=== PATIENT | female | born 1935 | race Caucasian/White ===

== ENCOUNTER 2017-05-18 18:47 | Emergency (ER) | payer MEDICARE ==
[~2017-05-18] VITALS: Ht 167.6 cm; Wt 62.4 kg
[2017-05-18 18:52] VITALS: BP 165/75
[2017-05-18] MEDS ORDERED: LIDOCAINE 1%, 20ML INFIL ONE (19:00)
[2017-05-18] MEDS ORDERED: LIDOCAINE 1%, 20ML ONE (19:10)
[2017-05-18] MEDS ORDERED: BUPIVACAINE 0.25% ONE (19:13)
[2017-05-18] MEDS ORDERED: DIPH,PERTUSS(ACELL),TET VAC/PF 0.5 ML IM-VACC ONE ×2 (19:30→19:51)
[2017-05-18] MEDS ORDERED: BUPIVACAINE 0.25% INFIL ONE (19:30)
[2017-05-18] MEDS ORDERED: BACITRACIN ZINC OINT 500U/GM, 0.9 GM ONE (20:42)
== END 2017-05-18 20:44 | disposition home or self-care (01) ==
LOC: ED 20:38
DX: S61.212A Laceration without foreign body of right middle finger without damage to nail, initial encounter (principal); I10 Essential (primary) hypertension; E78.00 Pure hypercholesterolemia, unspecified; W26.0XXA Contact with knife, initial encounter; Y93.89 Activity, other specified; Y92.098 Other place in other non-institutional residence as the place of occurrence of the external cause; Y99.8 Other external cause status
CPT/HCPCS: 12001; 90471; 90715

== ENCOUNTER → 2019-03-11 | Outpatient (CLI) | payer MEDICARE | END | disposition home or self-care (01) | LOC: CFH 09:47 | PROVIDERS: ATTEND Internal Medicine Cardiovascular Disease | DX: I08.8 Other rheumatic multiple valve diseases (principal) | CPT/HCPCS: 93306 ==

== ENCOUNTER 2019-10-25 12:04 | Outpatient (CLI) | payer MEDICARE | END 2019-10-25 23:59 | disposition home or self-care (01) | LOC: CFH 12:04 | PROVIDERS: ATTEND Physician Assistant Medical | DX: J43.9 Emphysema, unspecified (principal); J90 Pleural effusion, not elsewhere classified; I11.9 Hypertensive heart disease without heart failure; I50.9 Heart failure, unspecified; I27.20 Pulmonary hypertension, unspecified; I08.1 Rheumatic disorders of both mitral and tricuspid valves; F32.9 Major depressive disorder, single episode, unspecified | CPT/HCPCS: 71046 ==

== ENCOUNTER → 2019-12-17 | Outpatient (CLI) | payer MEDICARE ==
[2019-12-17 13:10] LABS: BASOPHILS # (AUTO) 0.03 x10^3/uL (0-0.1); BASOPHILS % (AUTO) 0 % (0-1); EOSINOPHILS # (AUTO) 0.19 x10^3/uL (0-0.4); EOSINOPHILS % (AUTO) 3 % (1-7); LYMPHOCYTES # (AUTO) 1.57 x10^3/uL (1-3.4); LYMPHOCYTES % (AUTO) 21 % (22-44); MD NO; MEAN CORPUSCULAR HGB CONC 32.9 g/dL (32.4-35.8); MEAN CORPUSCULAR VOLUME 91.1 fL (80-100); MEAN PLATELET VOLUME 7.5 fL (7.4-10.4); MONOCYTES # (AUTO) 0.51 x10^3/uL (0.2-0.8); MONOCYTES % (AUTO) 7 % (2-9); NEUTROPHILS # (AUTO) 5.33 x10^3/uL (1.8-6.8); NEUTROPHILS % (AUTO) 70 % (42-75); PLATELET COUNT 233 x10^3/uL (130-400); RED BLOOD COUNT 4.88 x10^6/uL (3.82-5.3); RED CELL DISTRIBUTION WIDTH 13.6 % (9.6-15.2)
[2019-12-17 13:52] LABS: ALBUMIN 3.7 g/dL (3.4-5.0); ANION GAP 9 mmol/L (5-15); CALCIUM 9.1 mg/dL (8.5-10.1); CHLORIDE 94 mmol/L (98-107)
[2019-12-17 13:57] LABS: ALANINE AMINOTRANSFERASE 71 U/L (12-78); ALKALINE PHOSPHATASE 165 U/L (45-117); BILIRUBIN,TOTAL 0.9 mg/dL (0.2-1.0); CREATININE 0.75 mg/dL (0.55-1.02)
== END | disposition home or self-care (01) ==
LOC: CFH 09:35
PROVIDERS: ATTEND Nurse Practitioner
DX: J84.10 Pulmonary fibrosis, unspecified (principal); J98.4 Other disorders of lung; R91.1 Solitary pulmonary nodule; I34.0 Nonrheumatic mitral (valve) insufficiency; R18.8 Other ascites
CPT/HCPCS: 36415; 71250; 80053; 83880; 85025

== ENCOUNTER → 2019-12-19 | Outpatient (CLI) | payer MEDICARE | END | disposition home or self-care (01) | LOC: CFH 06:37 | PROVIDERS: ATTEND Internal Medicine Cardiovascular Disease | DX: Z01.810 Encounter for preprocedural cardiovascular examination (principal); I08.8 Other rheumatic multiple valve diseases; I47.1 Supraventricular tachycardia | CPT/HCPCS: 76700; 93306 ==

== ENCOUNTER → 2020-01-22 | Outpatient (CLI) | payer MEDICARE ==
[2020-01-22 13:00] LABS: ALANINE AMINOTRANSFERASE 45 U/L (12-78); ALBUMIN 4.2 g/dL (3.4-5.0); ALKALINE PHOSPHATASE 130 U/L (45-117); ANION GAP 5 mmol/L (5-15); BILIRUBIN,TOTAL 1.3 mg/dL (0.2-1.0); CALCIUM 9.4 mg/dL (8.5-10.1); CHLORIDE 91 mmol/L (98-107); CREATININE 0.84 mg/dL (0.55-1.02); TOTAL PROTEIN 6.8 g/dL (6.4-8.2)
[2020-01-22 13:06] LABS: BILIRUBIN, DIRECT 0.4 mg/dL (0.1-0.2); BILIRUBIN,INDIRECT 0.9 mg/dL (0.0-2.0)
== END | disposition home or self-care (01) ==
LOC: CFH 09:07
PROVIDERS: ATTEND Internal Medicine Cardiovascular Disease
DX: R06.02 Shortness of breath (principal); R60.9 Edema, unspecified
CPT/HCPCS: 36415; 80048; 80076; 83880

== ENCOUNTER → 2020-02-10 | Outpatient (CLI) | payer MEDICARE ==
[2020-02-10 13:23] LABS: CHLORIDE 102 mmol/L (98-107)
[2020-02-10 13:39] LABS: ALANINE AMINOTRANSFERASE 71 U/L (12-78); ALBUMIN 4.1 g/dL (3.4-5.0); ALKALINE PHOSPHATASE 147 U/L (45-117); ANION GAP 5 mmol/L (5-15); CALCIUM 9.2 mg/dL (8.5-10.1); CREATININE 0.88 mg/dL (0.55-1.02); TOTAL PROTEIN 6.6 g/dL (6.4-8.2)
== END | disposition home or self-care (01) ==
LOC: CFH 09:16
PROVIDERS: ATTEND Family Medicine
DX: I10 Essential (primary) hypertension (principal); I08.1 Rheumatic disorders of both mitral and tricuspid valves
CPT/HCPCS: 36415; 80053; 83880

== ENCOUNTER → 2020-02-13 | Outpatient (CLI) | payer MEDICARE | END | disposition home or self-care (01) | LOC: CFH 07:42 | PROVIDERS: ATTEND Internal Medicine Cardiovascular Disease | DX: I10 Essential (primary) hypertension (principal); R06.02 Shortness of breath | CPT/HCPCS: 78452; 93017; A9502 ==

== ENCOUNTER 2020-04-09 11:06 | Day surgery (SDC) | payer MEDICARE ==
[~2020-04-09] VITALS: Ht 165.1 cm; Wt 59.1 kg
[2020-04-09] MEDS ORDERED: PLEASE ENTER HEIGHT AND WEIGHT MC SCH (11:30)
[2020-04-09 11:37] VITALS: BP 111/67
[2020-04-09] MEDS ORDERED: FURO20TA3 PO (11:44)
[2020-04-09] MEDS ORDERED: CHOL10003 PO (11:44)
[2020-04-09] MEDS ORDERED: LABE200T6 PO (11:44)
[2020-04-09] MEDS ORDERED: OMEG1CAP23 PO (11:44)
[2020-04-09] MEDS ORDERED: APIX5TAB PO (11:44)
[2020-04-09] MEDS ORDERED: LOSA100T14 PO (11:44)
[2020-04-09] MEDS ORDERED: MAGN400T36 PO (11:44)
[2020-04-09] MEDS ORDERED: MIRT15TA PO (11:44)
[2020-04-09] MEDS ORDERED: POTA10TA6 PO (11:44)
[2020-04-09] MEDS ORDERED: SPIR25TA PO (11:44)
[2020-04-09 12:04] LABS: ANION GAP 5 mmol/L (5-15); CALCIUM 9.8 mg/dL (8.5-10.1); CHLORIDE 104 mmol/L (98-107)
[2020-04-09] MEDS ORDERED: PROPOFOL 10 MG/ML, 20ML ONE (13:44)
[2020-04-09] MEDS ORDERED: SODIUM CHLORIDE FLUSH 10ML SYR IVF SCH (21:00)
== END 2020-04-09 15:09 | disposition home or self-care (01) ==
LOC: CACL 11:06
PROVIDERS: ATTEND Internal Medicine Cardiovascular Disease
DX: I48.91 Unspecified atrial fibrillation (principal); I10 Essential (primary) hypertension; I08.1 Rheumatic disorders of both mitral and tricuspid valves; F32.9 Major depressive disorder, single episode, unspecified; J44.9 Chronic obstructive pulmonary disease, unspecified; E87.1 Hypo-osmolality and hyponatremia; Z79.01 Long term (current) use of anticoagulants; Z79.899 Other long term (current) drug therapy; Z98.890 Other specified postprocedural states
CPT/HCPCS: 36415; 80048; 92960; 93005; J2704

== ENCOUNTER 2020-10-31 01:10 | Emergency (ER) | payer MEDICARE ==
[~2020-10-31] VITALS: Ht 165.1 cm; Wt 60.0 kg
[~2020-10-31 01:10] MED LIST: APIX5TAB PO; CHOL10003 PO; FURO20TA3 PO; LABE200T6 PO; LOSA100T14 PO; MAGN400T36 PO; MIRT-37 PO; OMEG1CAP23 PO; POTA10TA6 PO; SPIR25TA PO
[2020-10-31] MEDS ORDERED: PHENYLEPHRINE NASAL 1%, 15ML SPRAY ONE (01:36)
[2020-10-31] MEDS ORDERED: NEOSPORIN OINT. PKT 1 PACKET ONE (01:50)
[2020-10-31] MEDS ORDERED: PHENYLEPHRINE NASAL 0.5%, 15ML SPRAY NAS ONE (02:00)
[2020-10-31 02:37] VITALS: BP 183/84
--- NOTE | 2020-10-31 02:39 | NUR ---
break rn: Patient given discharge instructions and they have confirmed that they understand the instructions. Patient ambulatory with steady gait. nad, denies additional questions or needs at this time. no personal belongings left in room at time of dc.
== END 2020-10-31 02:40 | disposition home or self-care (01) ==
LOC: ED 02:34
DX: R04.0 Epistaxis (principal); I48.91 Unspecified atrial fibrillation; E78.00 Pure hypercholesterolemia, unspecified; I10 Essential (primary) hypertension
CPT/HCPCS: 30901; 99284

== ENCOUNTER 2020-11-02 12:34 | Emergency (ER) | payer MEDICARE ==
[~2020-11-02] VITALS: Ht 165.1 cm; Wt 60.4 kg
--- NOTE | 2020-11-02 15:08 | NUR ---
ERP, Dmitri, PA to bedside to remove left nostril packing.
[2020-11-02 15:09] VITALS: BP 125/60
[2020-11-02] MEDS ORDERED: SILVER NITRATE STICK TP ONE (15:12)
== END 2020-11-02 15:20 | disposition home or self-care (01) ==
LOC: ED 13:48
DX: R04.0 Epistaxis (principal); I10 Essential (primary) hypertension; I48.91 Unspecified atrial fibrillation; E78.00 Pure hypercholesterolemia, unspecified
CPT/HCPCS: 30901; 99284

== ENCOUNTER 2020-11-13 08:25 | Emergency (ER) | payer MEDICARE ==
[~2020-11-13] VITALS: Ht 165.1 cm; Wt 59.5 kg
[2020-11-13 08:27] VITALS: BP 174/75
--- NOTE | 2020-11-13 08:41 | NUR ---
PATIENT WALKED BACK FROM TRIAGE WITH CHIEF C/O OF EPISTAXIS. PATIENT STATES NOSE STARTED BLEEDING AROUND 0700 THIS MORNING AND HAS NOT STOPPED. PATIENT REPORTS BEING HERE A WEEK AGO FOR THE SAME ISSUE AND HAD HER NOSE PACKED. PATIENT REPORTS TAKING ELIQUIS. BLEEDING CONTROLLED AT THIS TIME, ETELVINAN, ACCOMPANIED BY SON, CALL LIGHT WITHIN REACH.
[2020-11-13] MEDS ORDERED: COCAINE TOPICAL SOLN 4%, 4ML ONE (09:16)
--- NOTE | 2020-11-13 09:31 | NUR ---
cocaine topical applied by resident. no bleeding. as
[2020-11-13] MEDS ORDERED: COCAINE TOPICAL SOLN 4%, 4ML TP ONE (10:30)
--- NOTE | 2020-11-13 10:56 | NUR ---
Patient given discharge instructions and they have confirmed that they understand the instructions. Patient stable and ambulatory with steady gait from ED with significant other to private vehicle.
== END 2020-11-13 10:57 | disposition home or self-care (01) ==
LOC: ED 08:47
DX: R04.0 Epistaxis (principal); R09.81 Nasal congestion; I10 Essential (primary) hypertension; I48.91 Unspecified atrial fibrillation
CPT/HCPCS: 99282

== ENCOUNTER → 2021-02-23 | Outpatient (CLI) | payer MEDICARE | END | disposition home or self-care (01) | LOC: CVU 09:20 | PROVIDERS: ATTEND Nurse Practitioner Family | DX: I08.3 Combined rheumatic disorders of mitral, aortic and tricuspid valves (principal); I10 Essential (primary) hypertension; I48.91 Unspecified atrial fibrillation | CPT/HCPCS: 93306; 93356 ==